=== PATIENT | female | born 1950 | race Caucasian/White ===

== ENCOUNTER 2017-11-23 07:13 | Emergency (ER) | payer MEDICARE, BC ==
[2017-11-23] MEDS: SOD CHLORIDE 0.9% 1,000 ML IV (07:52)
[2017-11-23] MEDS: MAGNESIUM SULFATE 2 GM/50 ML 50 ML IVPB (07:52)
[2017-11-23] MEDS: DILTIAZEM 25 MG INJ IV (07:53)
[2017-11-23 07:54] LABS: ADD MAN DIFF? NO
[2017-11-23 07:55] LABS: BASOPHIL # 0.1 10^3/ul (0.0-0.1); EOSINOPHILS # 0.1 10^3/ul (0.0-0.5); EOSINOPHILS % 2.1 % (0.0-7.0); HEMATOCRIT 43.6 % (37.0-47.0); HEMOGLOBIN 14.6 g/dl (12.0-16.0); LYMPHOCYTES # 1.5 10^3/ul (0.8-2.9); LYMPHOCYTES % 25.3 % (15.0-51.0); MEAN CORPUSCULAR HEMOGLOBIN 30.9 pg (29.0-33.0); MEAN CORPUSCULAR HGB CONC 33.5 g/dl (32.0-37.0); MEAN CORPUSCULAR VOLUME 92.2 fl (82.0-101.0); MEAN PLATELET VOLUME 9.7 fl (7.4-10.4); MONOCYTE # 0.3 10^3/ul (0.3-0.9); MONOCYTES % 5.5 % (0.0-11.0); NEUTROPHIL # 3.8 10^3/ul (1.6-7.5); NEUTROPHILS % 65.9 % (39.0-77.0); PLATELET COUNT 215 10^3/UL (140-415); RED BLOOD COUNT 4.73 10^6/ul (4.20-5.40); RED CELL DISTRIBUTION WIDTH 12.9 % (11.5-14.5)
[2017-11-23 07:55] LABS: WHITE BLOOD COUNT 5.8 10^3/ul (4.8-10.8)
[2017-11-23 08:34] LABS: ANION GAP 13 (8-16); BLOOD UREA NITROGEN 16 mg/dl (7-20); CALCIUM 9.6 mg/dl (8.4-10.2); CARBON DIOXIDE 26 mmol/L (21-31); CHLORIDE 106 mmol/L (97-110); CREATININE 0.74 mg/dl (0.44-1.00); GLUCOSE 119 mg/dl (70-220); POTASSIUM 4.4 mmol/L (3.5-5.1); SODIUM 141 mmol/L (135-144)
[2017-11-23 08:46] LABS: TROPONIN-I < 0.012 ng/ml (0.000-0.120)
[2017-11-23] MEDS: IBUTILIDE IV (09:02)
[2017-11-23] MEDS: NS IV (09:02)
== END 2017-11-23 13:00 | disposition home or self-care (01) ==
LOC: E/R 07:13
DX: I48.92 Unspecified atrial flutter (principal)
CPT/HCPCS: 36415; 71045; 80048; 84484; 85025; 93005; 96374; 96375; 99291-25

== ENCOUNTER 2017-12-24 08:18 | Emergency (ER) | payer MEDICARE, BC ==
[2017-12-24] MEDS: SOD CHLORIDE 0.9% 1,000 ML IV (09:04)
[2017-12-24] MEDS: MAGNESIUM SULFATE 1 GM/D5W 100 ML IVPB (09:04)
[2017-12-24 09:18] LABS: ADD MAN DIFF? NO
[2017-12-24 09:22] LABS: WHITE BLOOD COUNT 6.6 10^3/ul (4.8-10.8)
[2017-12-24 09:22] LABS: HEMATOCRIT 46.8 % (37.0-47.0); HEMOGLOBIN 15.6 g/dl (12.0-16.0); MEAN CORPUSCULAR VOLUME 92.3 fl (82.0-101.0); RED BLOOD COUNT 5.07 10^6/ul (4.20-5.40)
[2017-12-24 09:23] LABS: BASOPHILS % 0.6 % (0.0-2.0); EOSINOPHILS # 0.1 10^3/ul (0.0-0.5); EOSINOPHILS % 1.7 % (0.0-7.0); LYMPHOCYTES # 1.3 10^3/ul (0.8-2.9); LYMPHOCYTES % 19.9 % (15.0-51.0); MEAN CORPUSCULAR HEMOGLOBIN 30.8 pg (29.0-33.0); MEAN CORPUSCULAR HGB CONC 33.3 g/dl (32.0-37.0); MEAN PLATELET VOLUME 9.5 fl (7.4-10.4); MONOCYTE # 0.3 10^3/ul (0.3-0.9); MONOCYTES % 4.7 % (0.0-11.0); NEUTROPHIL # 4.8 10^3/ul (1.6-7.5); NEUTROPHILS % 72.6 % (39.0-77.0); PLATELET COUNT 221 10^3/UL (140-415); RED CELL DISTRIBUTION WIDTH 13.2 % (11.5-14.5)
[2017-12-24 09:37] LABS: INR 0.84; PROTIME 11.6 Sec (11.9-14.9); PT RATIO 0.9
[2017-12-24 09:38] LABS: ANION GAP 6 (5-13); BLOOD UREA NITROGEN 16 mg/dl (7-20); CALCIUM 10.1 mg/dl (8.4-10.2); CARBON DIOXIDE 35 mmol/L (21-31); CHLORIDE 101 mmol/L (97-110); CREATININE 0.78 mg/dl (0.44-1.00); GLUCOSE 103 mg/dl (70-220); POTASSIUM 4.4 mmol/L (3.5-5.1); SODIUM 142 mmol/L (135-144)
[2017-12-24 09:39] LABS: MAGNESIUM 2.2 mg/dl (1.7-2.5)
[2017-12-24 09:50] LABS: B-TYPE NATRIURETIC PEPTIDE 293 PG/ML (0-125); TROPONIN-I < 0.012 ng/ml (0.000-0.120)
[2017-12-24] MEDS: DILTIAZEM 25 MG INJ IV (10:29)
[2017-12-24] MEDS: SOD CHLORIDE 0.9% IVPB (11:26)
[2017-12-24] MEDS: IBUTILIDE IVPB (11:26)
== END 2017-12-24 15:42 | disposition home or self-care (01) ==
LOC: E/R 08:18
DX: I48.3 Typical atrial flutter (principal); R53.83 Other fatigue; E87.3 Alkalosis
CPT/HCPCS: 36415; 71045; 80048; 83735; 83880; 84484; 85025; 85610; 93005; 96374; 96375; 99285-25